=== PATIENT | female | born 1990 | race African-American/Black ===

== ENCOUNTER 2017-11-25 15:33 | Emergency (ER) | payer SELFPAY ==
[2017-11-25] MEDS ORDERED: Dexamethasone 4 MG TAB ONE (16:27)
== END 2017-11-25 16:32 | disposition home or self-care (01) ==
LOC: MADERS 15:33
DX: J18.9 Pneumonia, unspecified organism (principal)
CPT/HCPCS: 99283; J8540

== ENCOUNTER 2018-10-13 05:56 | Emergency (ER) | payer MEDICAID, SELFPAY ==
[2018-10-13] MEDS ORDERED: HYDROcodone/Acetaminophen 5/325 mg Tablet ONE (06:40)
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
== END 2018-10-13 07:40 | disposition home or self-care (01) ==
LOC: MADERS 05:56
DX: R07.89 Other chest pain (principal); R51 Headache; M25.522 Pain in left elbow; V43.52XA Car driver injured in collision with other type car in traffic accident, initial encounter
CPT/HCPCS: 70450; 71046

== ENCOUNTER 2020-05-05 09:57 | Emergency (ER) | payer MEDICAID, SELFPAY | END 2020-05-05 11:14 | disposition home or self-care (01) | LOC: MADERS 09:57 | DX: O99.891 Other specified diseases and conditions complicating pregnancy (principal); R00.2 Palpitations; Z3A.24 24 weeks gestation of pregnancy | CPT/HCPCS: 93005 ==

== ENCOUNTER 2022-09-29 05:56 | Emergency (ER) | payer BC, OTHER ==
[2022-09-29] MEDS ORDERED: Ketorolac Tromethamine 30 MG/ML VIAL ONE (06:22)
[2022-09-29] MEDS ORDERED: Ondansetron PF 4 MG/2 ML Vial ONE (06:22)
[2022-09-29] MEDS ORDERED: Sodium Chloride 0.9% 1,000 ML ONE (06:23)
[2022-09-29 06:36] LABS: #Basophils 0.1 thou/uL (0.0-0.2); #Eosinphils 0.3 thou/uL (0.0-0.7); #Lymphocytes 2.2 thou/uL (1.20-3.40); #Monocytes 0.5 thou/uL (0.11-0.59); %Basophils 1.3 % (0.0-1.0); %Eosinophils 4.2 % (0.0-10.0); %Lymphocytes 36.6 % (21.0-51.0); %Monocytes 8.4 % (0.0-10.0); %Neutrophils 49.5 % (42.0-75.0); Hemoglobin 11.4 g/dL (12.0-16.0); Mean Corpuscular HGB CONC 33.7 g/dL (32.0-36.0); Mean Corpuscular Volume 86.1 fl (78.0-98.0); Mean Platelet Volume 9.9 fL (7.4-10.4); Platelet Count 217 10x3/uL (130-400); RBC Distribution Width 11.6 % (11.5-14.5); Red Blood Cell (RBC) Count 3.92 mill/uL (4.20-5.40); White Blood Cell (WBC) Count 6.1 10x3/uL (4.8-10.8)
[2022-09-29 06:39] LABS: BHCG - Serum Negative (NEGATIVE); Pregs Control Background? CLEAR/WHITE (CLR/WHITE); Pregs Control Bar Appear? YES (CONTROL BAR)
[2022-09-29 06:50] LABS: ALT (SGPT) 13 U/L (8-55); AST (SGOT) 15 U/L (5-34); Albumin 4.2 g/dL (3.5-5.0); Alkaline Phosphatase 31 U/L (40-110); Anion Gap 12 mmol/L (10-20); BUN (Urea Nitrogen) 8 mg/dL (7.0-18.7); Bilirubin, Total 0.3 mg/dL (0.2-1.2); Calc. Creatinine Clearance 0 mL/min (70-130); Calcium 8.6 mg/dL (7.8-10.44); Carbon Dioxide 25 mmol/L (22-29); Chloride 106 mmol/L (98-107); Estimated GFR 103; Globulin 2.5 g/dL (2.4-3.5); Glucose 92 mg/dL (70-105); Lipase 18 U/L (8-78); Potassium 3.6 mmol/L (3.5-5.1); Protein, Total 6.7 g/dL (6.0-8.3); Sodium 139 mmol/L (136-145)
[2022-09-29] MEDS ORDERED: cefTRIAXone (ROCEPHIN) 2 GM VIAL ONE (07:53)
[2022-09-29] MEDS ORDERED: Sodium Chloride 0.9% 100 ML ONE (07:53)
[2022-09-29 07:57] LABS: Bilirubin Negative (Negative); Blood, Urine Negative (Negative); Clarity Clear (Clear); Glucose, Urine (Dipstick) Negative (Negative); Ketone, Urine 40 mg/dL (Negative); Leukocyte Negative (Negative); Nitrite Negative (Negative); Protein, Urine (Dipstick) Negative (Neg-Trace); Specific Gravity, Urine 1.025 (1.005-1.030); Urobilinogen 0.2 mg/dL (Less than 2)
== END 2022-09-29 08:33 | disposition home or self-care (01) ==
LOC: MADERS 05:56
DX: R10.13 Epigastric pain (principal)
CPT/HCPCS: 74176; 80053; 81003; 83690; 84703; 85025; 87086; 96365; 96375; J0696; J1885; J2405; J3490; J7050